=== PATIENT | male | born 1960 | race Caucasian/White ===

== ENCOUNTER 2024-03-31 14:30 | Outpatient (RCR) | payer BC, SELFPAY | END 2024-06-02 09:28 | disposition home or self-care (01) | PROVIDERS: PCP Surgery; Visit Provider Surgery | DX: M53.3 Sacrococcygeal disorders, not elsewhere classified (principal); M54.50 Low back pain, unspecified; M25.551 Pain in right hip; Z51.89 Encounter for other specified aftercare | CPT/HCPCS: 97110; 97161 ==

== ENCOUNTER 2025-08-04 07:01 | Outpatient (CLI) | payer MEDICARE, BC, SELFPAY ==
--- NOTE | 2025-08-04 08:37 | P.ANES_ITS ---
Anesthesia Charges Start Date/Time Anesthesia Start Date: 08/04/25 Anesthesia Start Time: 07:59 Stop Date/Time Anesthesia Stop Date: 08/04/25 Anesthesia Stop Time: 08:33 Coding CPT Codes CPT Codes: LYDIA LWR INTST NDSC NOS - [id number] ([id number]) P2 - PATIENT W/MILD SYST DISEASE, QK - SMALL EQUIPMENT OPERATOR 2-4 CNCRNT ANES PROC, QX - THREAD MILLING MACHINE SET UP OPERATOR SVC W/ MD MED DIRECTION
--- NOTE | 2025-08-04 08:37 | W.ANESCHARGE ---
Anesthesia Charges Start Date/Time Anesthesia Start Date: 08/04/25 Anesthesia Start Time: 07:59 Stop Date/Time Anesthesia Stop Date: 08/04/25 Anesthesia Stop Time: 08:33 Coding CPT Codes CPT Codes: LYDIA LWR INTST NDSC NOS - [id number] ([id number]) P2 - PATIENT W/MILD SYST DISEASE, QK - DENTAL FINANCIAL COORDINATOR 2-4 CNCRNT ANES PROC, QX - PAINT GRINDER SVC W/ MD MED DIRECTION
--- NOTE | 2025-08-04 08:49 | P.ANES_ITS ---
Anesthesia Charges Start Date/Time Anesthesia Start Date: 08/04/25 Anesthesia Start Time: 07:59 Stop Date/Time Anesthesia Stop Date: 08/04/25 Anesthesia Stop Time: 08:33 Coding CPT Codes CPT Codes: LYDIA LWR INTST NDSC NOS - [id number] ([id number]) QK - DISTRIBUTION CENTER ASSISTANT 2-4 CNCRNT LYDIA PROC, QX - PORCELAIN ENAMELING SUPERVISOR SVC W/ MD MED DIRECTION, P2 - PATIENT W/MILD SYST DISEASE
--- NOTE | 2025-08-04 08:49 | W.ANESCHARGE ---
Anesthesia Charges Start Date/Time Anesthesia Start Date: 08/04/25 Anesthesia Start Time: 07:59 Stop Date/Time Anesthesia Stop Date: 08/04/25 Anesthesia Stop Time: 08:33 Coding CPT Codes CPT Codes: LYDIA LWR INTST NDSC NOS - [id number] ([id number]) QK - LABORATORY SECRETARY 2-4 CNCRNT LYDIA PROC, QX - MARKETING SERVICES VICE PRESIDENT SVC W/ MD MED DIRECTION, P2 - PATIENT W/MILD SYST DISEASE
== END 2025-08-04 07:02 | disposition home or self-care (01) ==
LOC: OP CLINIC 07:05
PROVIDERS: PCP Surgery; Visit Provider Internal Medicine Gastroenterology
DX: Z12.11 Encounter for screening for malignant neoplasm of colon (principal); Z86.0101 Personal history of adenomatous and serrated colon polyps; D12.5 Benign neoplasm of sigmoid colon
CPT/HCPCS: 00811; 45385; 88305; J2704